=== PATIENT | male | born 1955 | race African-American/Black ===

== ENCOUNTER 2022-05-10 12:20 | Emergency (ER) | payer MEDICAID ==
[~2022-05-10] VITALS: Ht 175.3 cm; Wt 68.0 kg
[2022-05-10 12:29] VITALS: BP 119/81
[2022-05-10] MEDS ORDERED: TETANUS, DIPHTHERIA, PERTUSSIS VAC/PF 0.5ML (>10YR OLD) IM ONE (12:45)
[2022-05-10] MEDS ORDERED: ACETAMINOPHEN WITH CODEINE 300/30MG TABLET PO ONE (12:45)
[2022-05-10] MEDS ORDERED: LIDOCAINE HCL/PF 1% 10 MG/ML 5ML VIAL INFIL ONE (12:45)
[2022-05-10] MEDS ORDERED: BACITRACIN ZINC OINT UDPKT TOP ONE (12:45)
== END 2022-05-10 13:20 | disposition left against medical advice (07) ==
LOC: ER 12:54
DX: S61.511A Laceration without foreign body of right wrist, initial encounter (principal); W45.8XXA Other foreign body or object entering through skin, initial encounter; Y93.89 Activity, other specified; Y92.89 Other specified places as the place of occurrence of the external cause; Y99.8 Other external cause status
CPT/HCPCS: 99281; J3490